=== PATIENT | male | born 1975 | race Caucasian/White ===

== ENCOUNTER 2023-05-05 04:09 | Emergency (ER) | payer MEDICAID ==
[~2023-05-05] VITALS: Ht 185.4 cm; Wt 109.1 kg
[2023-05-05] MEDS: albuterol 2.5 MG/3 ML nebule NEB ONE ×2 (04:25→05:56)
[2023-05-05 04:27] VITALS: PULSE 75; RESP 20; O2SAT 95
[2023-05-05 04:41] VITALS: PULSE 83; RESP 20; O2SAT 96
[2023-05-05 04:58] LABS: ALBUMIN 3.7 G/DL (3.4-5.0); ANION GAP 9 (8-16); BLOOD UREA NITROGEN 13 MG/DL (7-18); BUN/CREATININE RATIO 14.9 (10.0-20.0); CALCIUM 8.2 MG/DL (8.5-10.1); CHLORIDE 106 MMOL/L (99-107); CREATININE 0.87 MG/DL (0.60-1.10); GLUCOSE 106 MG/DL (70-104); POTASSIUM 3.8 MMOL/L (3.5-5.1); SODIUM 144 MMOL/L (135-145); TOTAL CARBON DIOXIDE 29.1 MMOL/L (24-32); eCRCL 117 ML/MIN; eGFR > 90 ML/MIN
[2023-05-05] MEDS: methylPREDNISolone sod succ 125mg/2ml vial IV ONE (05:01)
[2023-05-05] MEDS: normal saline 1000ML IV soln IVB ONE (05:01)
[2023-05-05 05:25] LABS: BASOPHILS # (AUTO) 0.1 X10'3 (0-0.2); EOSINOPHILS # (AUTO) 0.4 X10'3 (0-0.9); EOSINOPHILS % (AUTO) 6.3 % (0-6); HEMOGLOBIN 14.2 g/dl (14.0-17.9); LYMPHOCYTES % (AUTO) 35.3 % (21-51); MEAN CORPUSCULAR HGB CONC 34.5 g/dL (33.0-36.5); MEAN CORPUSCULAR VOLUME 92.8 FL (78-98); MEAN PLATELET VOLUME 8.2 FL (7.4-10.4); MONOCYTES # (AUTO) 0.8 X10'3 (0-0.9); MONOCYTES % (AUTO) 13.6 % (2-12); NEUTROPHILS # (AUTO) 2.5 X10'3 (1.8-7.7); NEUTROPHILS % (AUTO) 43.8 % (42-75); PLATELET COUNT 197 X10'3 (140-440); RED BLOOD COUNT 4.42 X10'6 (4.70-6.10); WHITE BLOOD COUNT 5.7 X10'3 (4.5-11.0)
[2023-05-05] MEDS ORDERED: PRED20TA PO (05:29)
[2023-05-05] MEDS ORDERED: ALBU90AE INH (05:29)
[2023-05-05 05:57] VITALS: PULSE 75; RESP 18; O2SAT 96
[2023-05-05 06:07] VITALS: PULSE 80; RESP 18; O2SAT 96
[2023-05-05 06:44] VITALS: BP 138/94; PULSE 80; RESP 20; O2SAT 96
== END 2023-05-05 06:48 | disposition home or self-care (01) ==
LOC: ER 04:10
DX: J45.901 Unspecified asthma with (acute) exacerbation (principal); Z88.1 Allergy status to other antibiotic agents; Z79.899 Other long term (current) drug therapy
CPT/HCPCS: 36415; 71045; 80048; 85025; 93005; 94640; 96361; 96374; 99291; J2930; J7030